=== PATIENT | female | born 1975 | race Caucasian/White ===

== ENCOUNTER → 2016-11-02 | Outpatient (CLI) | payer BC | LOC: RAD 15:18 | DX: S89.92XA Unspecified injury of left lower leg, initial encounter (principal); X50.1XXA Overexertion from prolonged static or awkward postures, initial encounter ==

== ENCOUNTER → 2016-11-16 | Outpatient (CLI) | payer BC | LOC: RAD 14:28 | DX: S89.92XA Unspecified injury of left lower leg, initial encounter (principal); M25.462 Effusion, left knee ==

== ENCOUNTER 2017-04-01 08:00 | Outpatient (RCR) | payer BC | END 2017-04-02 09:00 | disposition home or self-care (01) | LOC: PT 08:00 | DX: Z47.89 Encounter for other orthopedic aftercare (principal) ==

== ENCOUNTER → 2017-10-11 | Outpatient (CLI) | payer BC ==
[2017-10-11 16:05] LABS: STREP SCREEN NEGATIVE (NEGATIVE)
== END ==
LOC: LAB 15:09
PROVIDERS: Family Medicine
DX: J06.9 Acute upper respiratory infection, unspecified (principal)

== ENCOUNTER 2017-10-28 17:50 | Emergency (ER) | payer BC ==
[~2017-10-28] VITALS: Ht 177.8 cm; Wt 145.5 kg
[2017-10-28] MEDS ORDERED: ZOLOFT 100MG100 MG PO (18:22)
[2017-10-28 18:38] LABS: EOS # 0.1 (0.04-0.40); EOS % 1.9 % (1.0-5.0); HEMATOCRIT 40.8 % (37.0-47.0); HEMOGLOBIN 13.5 g/dL (12.5-16.0); LYMPH# 1.7 (1.50-4.00); MEAN CELL VOLUME 89 fl (78-100); MEAN CORPUSCULAR HEMOGLOBIN 29 pg (27-31); MEAN CORPUSCULAR HGB CONC 33 g/dL (33-37); MEAN PLATELET VOLUME 11.6 fl (7.4-10.4); MONO # 0.8 (0.20-0.80); NEU # 4.3 (1.40-6.50); PLATELET COUNT 188 K/mm3 (130-400); RED CELL DISTRIBUTION WIDTH 13.3 % (11.5-14.5)
[2017-10-28 19:04] LABS: ALBUMIN 4.1 g/dL (3.5-5.0); BUN/CREATININE RATIO 28.6 (6.0-26.0); CALCIUM 9.1 mg/dL (8.4-10.2); POTASSIUM 3.9 mmol/L (3.6-5.0); TOTAL BILIRUBIN 0.6 mg/dL (0.2-1.3)
[2017-10-28 19:21] LABS: URINE APPEARANCE HAZY; URINE BILIRUBIN NEGATIVE (NEGATIVE); URINE BLOOD NEGATIVE (NEGATIVE); URINE COLOR YELLOW; URINE GLUCOSE NEGATIVE (NEGATIVE); URINE KETONE NEGATIVE (NEGATIVE); URINE LEUKOCYTE ESTERASE NEGATIVE (NEGATIVE); URINE NITRATE NEGATIVE (NEGATIVE); URINE PROTEIN(semi-quant) NEGATIVE (NEGATIVE); URINE UROBILINOGEN NORMAL (NORMAL); URINE WBC 0-1 /hpf (0-3)
[2017-10-28 19:22] LABS: URINE MUCUS PRESENT (NOT PRESENT)
[2017-10-28 20:23] VITALS: BP 124/69
== END 2017-10-28 20:23 | disposition home or self-care (01) ==
LOC: ED 17:50
PROVIDERS: Nurse Practitioner Family
DX: R10.11 Right upper quadrant pain (principal); R11.0 Nausea; F32.9 Major depressive disorder, single episode, unspecified; E66.9 Obesity, unspecified; Z68.42 Body mass index [BMI] 45.0-49.9, adult
CPT/HCPCS: J1885; J2405; J7030

== ENCOUNTER → 2017-10-29 | Outpatient (CLI) | payer BC ==
[2017-10-28 20:23] VITALS: BP 124/69
[~2017-10-29] MED LIST: LISINOPRIL10 MG PO; ZOLOFT 100MG100 MG PO
== END ==
LOC: RAD 14:22
DX: R10.11 Right upper quadrant pain (principal)

== ENCOUNTER 2017-10-30 09:44 | Emergency (ER) | payer BC ==
[~2017-10-30] VITALS: Wt 144.9 kg
[~2017-10-30 09:44] MED LIST changes: -LISINOPRIL10 MG PO
[2017-10-30] MEDS ORDERED: LISINOPRIL10 MG PO (14:17)
[2017-10-30 14:36] VITALS: BP 150/92
== END 2017-10-30 14:37 | disposition home or self-care (01) ==
LOC: ED 09:44
DX: R51 Headache (principal); I10 Essential (primary) hypertension; E66.01 Morbid (severe) obesity due to excess calories; F32.9 Major depressive disorder, single episode, unspecified
CPT/HCPCS: J0595

== ENCOUNTER → 2017-11-08 | Outpatient (CLI) | payer BC ==
[2017-10-30 14:36] VITALS: BP 150/92
[~2017-11-08] MED LIST changes: +LISINOPRIL10 MG PO
[2017-11-08 09:23] LABS: EOS # 0.2 (0.04-0.40); EOS % 2.4 % (1.0-5.0); HEMATOCRIT 41.6 % (37.0-47.0); HEMOGLOBIN 13.5 g/dL (12.5-16.0); LYMPH# 1.6 (1.50-4.00); MEAN CELL VOLUME 90 fl (78-100); MEAN CORPUSCULAR HEMOGLOBIN 29 pg (27-31); MEAN CORPUSCULAR HGB CONC 33 g/dL (33-37); MEAN PLATELET VOLUME 11.2 fl (7.4-10.4); MONO # 0.8 (0.20-0.80); NEU # 4.5 (1.40-6.50); PLATELET COUNT 169 K/mm3 (130-400); RED BLOOD COUNT 4.62 M/mm3 (4.10-5.30); RED CELL DISTRIBUTION WIDTH 13.5 % (11.5-14.5); WHITE BLOOD COUNT 7.1 K/mm3 (4.8-10.8)
[2017-11-08 09:46] LABS: BUN/CREATININE RATIO 37.2 (6.0-26.0); POTASSIUM 4.1 mmol/L (3.6-5.0); TOTAL PROTEIN 6.7 g/dL (6.3-8.2)
[2017-11-08 10:19] LABS: ALBUMIN 3.7 g/dL (3.5-5.0); CALCIUM 9.2 mg/dL (8.4-10.2); TOTAL BILIRUBIN 0.5 mg/dL (0.2-1.3)
== END ==
LOC: LAB 09:07
PROVIDERS: Family Medicine
DX: E66.01 Morbid (severe) obesity due to excess calories (principal); R53.83 Other fatigue

== ENCOUNTER 2017-12-30 15:45 | Outpatient (RCR) | payer BC | END 2017-12-30 16:15 | disposition home or self-care (01) | LOC: PT 15:45 | DX: M54.2 Cervicalgia (principal); M79.1 Myalgia; R51 Headache; H92.03 Otalgia, bilateral ==

== ENCOUNTER → 2018-02-07 | Outpatient (CLI) | payer BC | LOC: RAD 08:23 | DX: R51 Headache (principal) | CPT/HCPCS: Q9967 ==

== ENCOUNTER → 2018-06-29 | Outpatient (CLI) | payer BC | LOC: MAMMO 09:55 | DX: Z12.31 Encounter for screening mammogram for malignant neoplasm of breast (principal) ==

== ENCOUNTER → 2018-11-11 | Outpatient (CLI) | payer BC ==
[2018-11-11 16:00] LABS: BASO # 0.1 (0.02-0.10); EOS # 0.1 (0.04-0.40); EOS % 1.6 % (1.0-5.0); HEMATOCRIT 41.6 % (37.0-47.0); HEMOGLOBIN 13.3 g/dL (12.5-16.0); LYMPH# 2.1 (1.50-4.00); MEAN CELL VOLUME 92 fl (78-100); MEAN CORPUSCULAR HEMOGLOBIN 29 pg (27-31); MEAN CORPUSCULAR HGB CONC 32 g/dL (33-37); MONO # 0.7 (0.20-0.80); NEU # 4.6 (1.40-6.50); PLATELET COUNT 196 K/mm3 (130-400); RED BLOOD COUNT 4.52 M/mm3 (4.10-5.30); RED CELL DISTRIBUTION WIDTH 13.5 % (11.5-14.5); WHITE BLOOD COUNT 7.6 K/mm3 (4.8-10.8)
[2018-11-11 16:06] LABS: CALCIUM 8.9 mg/dL (8.4-10.2); POTASSIUM 4.4 mmol/L (3.6-5.0); TOTAL BILIRUBIN 0.5 mg/dL (0.2-1.3); TOTAL PROTEIN 6.8 g/dL (6.3-8.2)
== END ==
LOC: LAB 15:14
PROVIDERS: Family Medicine
DX: Z01.419 Encounter for gynecological examination (general) (routine) without abnormal findings (principal); E66.01 Morbid (severe) obesity due to excess calories; R53.83 Other fatigue; E55.9 Vitamin D deficiency, unspecified

== ENCOUNTER → 2018-12-29 | Outpatient (CLI) | payer BC | LOC: RAD 12-27 10:30 | DX: M46.92 Unspecified inflammatory spondylopathy, cervical region (principal) ==

== ENCOUNTER → 2019-01-04 | Outpatient (CLI) | payer BC | LOC: RAD 08:30 | DX: M48.02 Spinal stenosis, cervical region (principal); M50.121 Cervical disc disorder at C4-C5 level with radiculopathy; M40.50 Lordosis, unspecified, site unspecified ==

== ENCOUNTER → 2019-06-27 | Outpatient (CLI) | payer BC | LOC: RAD 09:50 | DX: R10.9 Unspecified abdominal pain (principal) | CPT/HCPCS: Q9967 ==

== ENCOUNTER → 2019-07-18 | Outpatient (CLI) | payer BC | LOC: MAMMO 07:41 | DX: Z12.31 Encounter for screening mammogram for malignant neoplasm of breast (principal) ==

== ENCOUNTER → 2019-09-27 | Outpatient (CLI) | payer BC ==
[2019-09-27 09:14] LABS: EOS # 0.1 (0.04-0.40); EOS % 2.1 % (1.0-5.0); HEMATOCRIT 44.8 % (37.0-47.0); HEMOGLOBIN 14.6 g/dL (12.5-16.0); LYMPH# 1.5 (1.50-4.00); MEAN CELL VOLUME 91 fl (78-100); MEAN CORPUSCULAR HEMOGLOBIN 30 pg (27-31); MEAN CORPUSCULAR HGB CONC 33 g/dL (33-37); MEAN PLATELET VOLUME 11.8 fl (7.4-10.4); MONO # 0.5 (0.20-0.80); NEU # 2.5 (1.40-6.50); PLATELET COUNT 164 K/mm3 (130-400); RED BLOOD COUNT 4.95 M/mm3 (4.10-5.30); RED CELL DISTRIBUTION WIDTH 13.2 % (11.5-14.5); WHITE BLOOD COUNT 4.7 K/mm3 (4.8-10.8)
[2019-09-27 09:21] LABS: ALBUMIN 4.2 g/dL (3.5-5.0)
[2019-09-27 09:22] LABS: POTASSIUM 4.2 mmol/L (3.5-5.1)
[2019-09-27 09:23] LABS: CALCIUM 9.1 mg/dL (8.3-10.5)
[2019-09-27 09:24] LABS: TOTAL PROTEIN 6.9 g/dL (6.4-8.3)
[2019-09-27 09:26] LABS: TOTAL BILIRUBIN 0.5 mg/dL (0.2-1.2)
== END ==
LOC: LAB 09:04
PROVIDERS: Nurse Practitioner
DX: I10 Essential (primary) hypertension (principal); R73.01 Impaired fasting glucose

== ENCOUNTER → 2019-10-13 | Outpatient (CLI) | payer BC ==
[2019-10-14 04:42] LABS: PROGESTERONE <0.5 ng/mL (())
[2019-10-14 04:48] LABS: TESTOSTERONE 27 ng/dL (14-53)
[2019-10-14 04:53] LABS: FOLLICLE STIMULATING HORMONE 5.5 mIU/mL (()); LUTENIZING HORMONE 4.5 mIU/mL (())
[2019-10-19 00:28] LABS: VITAMIN A 70.5 mcg/dL (())
[2019-10-19 12:55] LABS: ESTRONE (E1) LEVEL 545 pg/mL (())
== END ==
LOC: LAB 08:59
PROVIDERS: Family Medicine
DX: N92.1 Excessive and frequent menstruation with irregular cycle (principal); R53.83 Other fatigue

== ENCOUNTER → 2019-12-20 | Outpatient (CLI) | payer BC | LOC: LAB 08:58 | DX: R05 Cough (principal); R06.02 Shortness of breath; Z86.39 Personal history of other endocrine, nutritional and metabolic disease; Z86.59 Personal history of other mental and behavioral disorders; Z86.79 Personal history of other diseases of the circulatory system; Z87.09 Personal history of other diseases of the respiratory system ==

== ENCOUNTER → 2020-03-04 | Outpatient (CLI) | payer BC | LOC: LAB 12:15 | DX: R05 Cough (principal); R53.83 Other fatigue; J02.9 Acute pharyngitis, unspecified; R19.7 Diarrhea, unspecified; Z20.828 Contact with and (suspected) exposure to other viral communicable diseases ==

== ENCOUNTER → 2020-11-23 | Outpatient (CLI) | payer BC, OTHER ==
[~2020-11-23] MED LIST changes: +AMOXICILLIN AND1 TA2 PO; +AZITHROMYCIN 250MGPK PO; +ESTRADIOL2 M1 PO; +FUROSEMIDE20 MG PO; +HCTZ 25MG25 MG PO; +MELOXICAM15 MG PO; +PERCOCET 325 MG1 TA2 PO; +POTASSIUM CHLO20 ME4 PO; +PREDNISONE20 M1 PO; +PROAIR HFA0.09 MG/AC IH; +TOPIRAMATE100 MG PO
== END ==
LOC: RAD 13:33
DX: M12.811 Other specific arthropathies, not elsewhere classified, right shoulder (principal); M79.631 Pain in right forearm

== ENCOUNTER → 2020-12-03 | Outpatient (CLI) | payer BC | LOC: LAB 08:25 | DX: Z20.822 Contact with and (suspected) exposure to COVID-19 (principal) ==

== ENCOUNTER → 2020-12-06 | Outpatient (CLI) | payer BC, OTHER ==
[2020-12-06 16:10] LABS: EOS # 0.3 (0.04-0.40); EOS % 5.4 % (1.0-5.0); HEMATOCRIT 42.6 % (37.0-47.0); LYMPH# 1.6 (1.50-4.00); MEAN CELL VOLUME 90 fl (78-100); MEAN CORPUSCULAR HEMOGLOBIN 29 pg (27-31); MEAN CORPUSCULAR HGB CONC 33 g/dL (33-37); MEAN PLATELET VOLUME 11.5 fl (7.4-10.4); MONO # 0.6 (0.20-0.80); NEU # 3.3 (1.40-6.50); PLATELET COUNT 164 K/mm3 (130-400); RED BLOOD COUNT 4.76 M/mm3 (4.10-5.30); RED CELL DISTRIBUTION WIDTH 13.2 % (11.5-14.5); WHITE BLOOD COUNT 5.8 K/mm3 (4.8-10.8)
[2020-12-06 16:18] LABS: CALCIUM 8.7 mg/dL (8.3-10.5)
[2020-12-06 16:19] LABS: TOTAL PROTEIN 7.1 g/dL (6.4-8.3)
[2020-12-06 16:21] LABS: TOTAL BILIRUBIN 0.4 mg/dL (0.2-1.2)
== END ==
LOC: LAB 15:41
PROVIDERS: Family Medicine
DX: Z00.00 Encounter for general adult medical examination without abnormal findings (principal); E78.5 Hyperlipidemia, unspecified

== ENCOUNTER → 2020-12-12 | Outpatient (CLI) | payer BC, OTHER | LOC: RAD 16:02 | DX: M75.111 Incomplete rotator cuff tear or rupture of right shoulder, not specified as traumatic (principal); M89.38 Hypertrophy of bone, other site ==

== ENCOUNTER 2021-02-17 09:00 | Outpatient (RCR) | payer BC, OTHER ==
[~2021-02-17 09:00] MED LIST changes: -AMOXICILLIN AND1 TA2 PO; -AZITHROMYCIN 250MGPK PO; -ESTRADIOL2 M1 PO; -FUROSEMIDE20 MG PO; -HCTZ 25MG25 MG PO; -MELOXICAM15 MG PO; -PERCOCET 325 MG1 TA2 PO; -POTASSIUM CHLO20 ME4 PO; -PREDNISONE20 M1 PO; -PROAIR HFA0.09 MG/AC IH; -TOPIRAMATE100 MG PO
[2021-03-04] MEDS ORDERED: MELOXICAM15 MG PO (09:16)
[2021-03-04] MEDS ORDERED: AMOXICILLIN AND1 TA2 PO (09:16)
[2021-03-04] MEDS ORDERED: ESTRADIOL2 M1 PO (09:16)
[2021-03-04] MEDS ORDERED: PERCOCET 325 MG1 TA2 PO (09:16)
[2021-03-04] MEDS ORDERED: PREDNISONE20 M1 PO ×3 (09:16→13:32)
[2021-03-04] MEDS ORDERED: FUROSEMIDE20 MG PO (09:17)
[2021-03-04] MEDS ORDERED: HCTZ 25MG25 MG PO (09:17)
[2021-03-04] MEDS ORDERED: TOPIRAMATE100 MG PO (09:17)
[2021-03-04] MEDS ORDERED: AZITHROMYCIN 250MGPK PO ×2 (13:30→13:32)
[2021-03-04] MEDS ORDERED: PROAIR HFA0.09 MG/AC IH (13:32)
[2021-03-04] MEDS ORDERED: POTASSIUM CHLO20 ME4 PO (13:39)
== END 2021-05-18 | disposition home or self-care (01) ==
LOC: PT
DX: S46.011A Strain of muscle(s) and tendon(s) of the rotator cuff of right shoulder, initial encounter (principal)

== ENCOUNTER 2021-03-04 09:05 | Emergency (ER) | payer BC ==
[2021-03-04] MEDS ORDERED: ESTRADIOL2 M1 PO (09:16)
[2021-03-04] MEDS ORDERED: AMOXICILLIN AND1 TA2 PO (09:16)
[2021-03-04] MEDS ORDERED: PREDNISONE20 M1 PO ×3 (09:16→13:32)
[2021-03-04] MEDS ORDERED: PERCOCET 325 MG1 TA2 PO (09:16)
[2021-03-04] MEDS ORDERED: MELOXICAM15 MG PO (09:16)
[2021-03-04] MEDS ORDERED: FUROSEMIDE20 MG PO (09:17)
[2021-03-04] MEDS ORDERED: TOPIRAMATE100 MG PO (09:17)
[2021-03-04] MEDS ORDERED: HCTZ 25MG25 MG PO (09:17)
[2021-03-04 10:09] LABS: BASO # 0.01 (0.02-0.10); HEMATOCRIT 44.7 % (37.0-47.0); HEMOGLOBIN 15.1 g/dL (12.5-16.0); LYMPH# 1.49 (1.50-4.00); MEAN CELL VOLUME 87 fl (78-100); MEAN CORPUSCULAR HEMOGLOBIN 30 pg (27-31); MEAN CORPUSCULAR HGB CONC 34 g/dL (33-37); MEAN PLATELET VOLUME 12.6 fl (7.4-10.4); MONO # 0.56 (0.20-0.80); NEU # 3.74 (1.40-6.50); PLATELET COUNT 112 K/mm3 (130-400); RED BLOOD COUNT 5.12 M/mm3 (4.10-5.30); RED CELL DISTRIBUTION WIDTH 12.5 % (11.5-14.5); WHITE BLOOD COUNT 5.8 K/mm3 (4.8-10.8)
[2021-03-04 10:13] LABS: ALBUMIN 3.8 g/dL (3.5-5.0)
[2021-03-04 10:14] LABS: CALCIUM 8.2 mg/dL (8.3-10.5)
[2021-03-04 10:15] LABS: TOTAL PROTEIN 6.7 g/dL (6.4-8.3)
[2021-03-04 10:17] LABS: TOTAL BILIRUBIN 0.7 mg/dL (0.2-1.2)
[2021-03-04 10:38] LABS: POTASSIUM 2.7 mmol/L (3.5-5.1)
[2021-03-04 11:01] LABS: PARTIAL THROMBOPLASTIN TIME 22.9 SECONDS (21.0-32.0); PROTHROMBIN TIME 9.9 SECONDS (9.0-12.0)
[2021-03-04 11:02] LABS: D-DIMER 0.57 mg/L FEU (0.15-0.50)
[2021-03-04] MEDS ORDERED: AZITHROMYCIN 250MGPK PO ×2 (13:30→13:32)
[2021-03-04] MEDS ORDERED: PROAIR HFA0.09 MG/AC IH (13:32)
[2021-03-04] MEDS ORDERED: POTASSIUM CHLO20 ME4 PO (13:39)
[2021-03-04 13:49] VITALS: BP 110/81
== END 2021-03-04 13:49 | disposition home or self-care (01) ==
LOC: ED 09:05
PROVIDERS: Nurse Practitioner
DX: U07.1 COVID-19 (principal); J12.82 Pneumonia due to coronavirus disease 2019; E87.6 Hypokalemia; I10 Essential (primary) hypertension; Z79.899 Other long term (current) drug therapy
CPT/HCPCS: J0696; J1100; Q9967

== ENCOUNTER → 2021-03-18 | Outpatient (CLI) | payer BC, OTHER ==
[~2021-03-18] MED LIST changes: +AMOXICILLIN AND1 TA2 PO; +AZITHROMYCIN 250MGPK PO; +ESTRADIOL2 M1 PO; +FUROSEMIDE20 MG PO; +HCTZ 25MG25 MG PO; +MELOXICAM15 MG PO; +PERCOCET 325 MG1 TA2 PO; +POTASSIUM CHLO20 ME4 PO; +PREDNISONE20 M1 PO; +PROAIR HFA0.09 MG/AC IH; +TOPIRAMATE100 MG PO
== END ==
LOC: RAD 15:53
DX: M25.472 Effusion, left ankle (principal)

== ENCOUNTER → 2021-03-19 | Outpatient (CLI) | payer BC, OTHER | LOC: RAD 08:51 | DX: I26.99 Other pulmonary embolism without acute cor pulmonale (principal) | CPT/HCPCS: Q9967 ==

== ENCOUNTER 2021-05-19 12:00 | Outpatient (RCR) | payer BC, OTHER | END 2021-08-17 | disposition still patient (30) | LOC: PT | DX: S46.011A Strain of muscle(s) and tendon(s) of the rotator cuff of right shoulder, initial encounter (principal) ==

== ENCOUNTER → 2021-12-08 | Outpatient (CLI) | payer BC | LOC: RAD 11:24 | DX: R10.9 Unspecified abdominal pain (principal); K92.1 Melena ==

== ENCOUNTER → 2023-06-23 | Outpatient (CLI) | payer BC | LOC: RAD 13:00 | DX: R60.0 Localized edema (principal) ==

== ENCOUNTER → 2023-07-26 | Outpatient (CLI) | payer BC | END | disposition still patient (30) | LOC: RAD 15:41 | DX: M54.50 Low back pain, unspecified (principal) ==

== ENCOUNTER → 2023-12-31 | Outpatient (CLI) | payer BC ==
[~2023-12-31] VITALS: Ht 177.8 cm; Wt 138.8 kg
[~2023-12-31] MED LIST changes: +Regadenoson 0.08 MG/ML 5 ML VIAL IV SCH
== END ==
LOC: CARDREHAB 07:53
DX: R07.89 Other chest pain (principal); R94.31 Abnormal electrocardiogram [ECG] [EKG]
CPT/HCPCS: A9500; J2785

== ENCOUNTER → 2024-06-30 | Outpatient (CLI) | payer BC ==
[~2024-06-30] MED LIST changes: -Regadenoson 0.08 MG/ML 5 ML VIAL IV SCH
== END ==
LOC: RAD 11:01
DX: Z01.818 Encounter for other preprocedural examination (principal)

== ENCOUNTER → 2024-08-03 | Outpatient (CLI) | payer BC | LOC: RAD 07:58 | DX: M22.41 Chondromalacia patellae, right knee (principal); M17.11 Unilateral primary osteoarthritis, right knee ==

== ENCOUNTER → 2024-10-10 | Outpatient (CLI) | payer BC | LOC: RAD 14:00 | DX: M47.816 Spondylosis without myelopathy or radiculopathy, lumbar region (principal); G97.1 Other reaction to spinal and lumbar puncture ==